=== PATIENT | female | born 1960 | race Caucasian/White ===

== ENCOUNTER 2016-05-07 08:51 | Emergency (ER) | payer OTHER ==
--- NOTE | 2016-05-07 10:29 | UC ---
Complaint Female HPI - HPI Summary HPI Summary: PT WITH H/O KIDNEY STONES PRESENTS WITH 1 WEEK OF DYSURIA AND HEMATURIA. PAST 4 DAYS HAS HAD CHILLS, MYALGIAS, NAUSEA. LOW GRADE FEVER HERE TODAY. - History Of Current Complaint Chief Complaint: UCGU Stated Complaint: URINARY ISSUE CHILLS Time Seen by Provider: 05/07/16 09:15 Hx Obtained From: Patient Onset/Duration: Gradual Onset, Lasting Days, Still Present Timing: Constant Severity Initially: Moderate Severity Currently: Moderate Pain Intensity: 7 Pain Scale Used: 0-10 Numeric Character: Dull Aggravating Factor(s): Urination Alleviating Factor(s): Nothing Associated Signs And Symptoms: Positive: Fever, Nausea - Allergies/Home Medications Allergies/Adverse Reactions: Allergies Allergy/AdvReac Type Severity Reaction Status Date / Time No Known Allergies Allergy Verified 08/29/15 21:32 PMH/Surg Hx/FS Hx/Imm Hx Endocrine History Of: Reports: Diabetes Cardiovascular History Of: Reports: Hypertension Respiratory History Of: Reports: Asthma - Surgical History Surgical History: Yes Surgery Procedure, Year, and Place: kidney stones. gallbladder - Family History Known Family History: Positive: Hypertension, Diabetes - Social History Alcohol Use: None Substance Use Type: None Smoking Status (MU): Never Smoked Tobacco Review of Systems Constitutional: Fever, Chills Respiratory: Negative Cardiovascular: Negative Gastrointestinal: Other - NAUSEA Genitourinary: Dysuria, Hematuria All Other Systems Reviewed And Are Negative: Yes Physical Exam Triage Information Reviewed: Yes Appearance: Well-Appearing, No Pain Distress, Well-Nourished Vital Signs: Initial Vital Signs Temp 100.5 F 05/07/16 09:07 Pulse 112 05/07/16 09:07 Resp 20 05/07/16 09:07 BP 152/82 05/07/16 09:07 Pulse Ox 95 05/07/16 09:07 Vital Signs Reviewed: Yes Eyes: Positive: Conjunctiva Clear ENT: Positive: Hearing grossly normal Neck: Positive: Supple Respiratory Exam: Normal Cardiovascular: Positive: Tachycardia Abdomen Description: Positive: Nontender, Soft. Negative: CVA Tenderness (R), CVA Tenderness (L), Distended, Guarding Musculoskeletal: Positive: No Edema Neurological: Positive: Alert Psychological: Positive: Age Appropriate Behavior Skin: Negative: rashes Diagnostics - Laboratory Diagnostic Studies Completed/Ordered: URINE DIP SP GR 1.020, 1+LEUKS, 2+BLOOD, 2 +PROTEIN, 1+ GLUCOSE. NEG NITRITES - Radiology CT ABD/PELVIS W/O Xray Interpretation: Positive (See Comments) - Developing left-sided staghorn calculus. Left-sided perinephric stranding. No obstruction. Radiology Interpretation Completed By: Radiologist Complaint Female Dx - Course Course Of Treatment: SPOKE TO DR. DOUGLASS (UROLOGY). ADVISES TRANSFER TO ER FOR ADMISSION FOR PYELO - ROCEPHIN/GENT, BLOOD WORK AND BLOOD CULTURES. PT SCHEDULED FOR STENT PLACEMENT TOMORROW. - Differential Dx/Diagnosis Provider Diagnoses: 1. PYELONEPHRITIS. 2. MULTIPLE RENAL CALCULI - Physician Notifications Discussed Patient Care With: 1. DR. DOUGLASS (UROLOGY) 2. TAVIA LORENZ (ER) Time Discussed With Above Provider: 11:46 - ADVISED TO SEND TO ER FOR ADMISSION Discharge - Discharge Plan Condition: Stable Disposition: AGAINST MEDICAL ADVICE Referrals: Marina Hernandez MD [Primary Care Provider] -
--- NOTE | 2016-05-07 11:10 | RAD ---
INDICATION: Hematuria. Dysuria. History of nephrolithiasis COMPARISON: None TECHNIQUE: Noncontrast axial source images were acquired from the level hemidiaphragms to the symphysis pubis as part of CT imaging for renal stone. Lung bases: The lung bases are clear. Liver: The liver is enlarged with findings of hepatic steatosis. Noncontrast imaging shows no evidence of a hepatic mass or ductal dilatation. Gallbladder: Cholecystectomy. Spleen: The spleen is normal in size. The noncontrast CT appearance is normal. Pancreas: Noncontrast imaging shows no pancreatic mass or ductal dilitation. Adrenal glands: No masses are identified. Kidneys/Bladder: There is a developing staghorn calculus on the left. The calcific mass measures up to 3.5 cm and involves the renal pelvis and lower pole left renal calyces. There are no other calcifications of urinary significance. There is no obstruction. There is mild left-sided perinephric stranding. Noncontrast imaging shows no evidence of a renal mass. The bladder is unremarkable. Adenopathy: There is no evidence of intraperitoneal or retroperitoneal adenopathy. Evaluation is limited without oral contrast. Fluid collections: There are no other free or localized fluid collections. Vessels: The aorta and iliac vessels are normal in caliber. There are no significant atherosclerotic changes. The IVC appears normal Pelvic organs: The uterus and right adnexa are normal. There are multiple surgical clips in the left adnexa GI tract: Evaluation of the bowel is limited without oral contrast. There is a small hiatal hernia. The upper GI tract is otherwise unremarkable. The terminal ileum appears normal. The appendix and cecum are normal. There is moderate stool throughout the colon. There are no obstructive findings. Soft tissues: No soft tissue abnormalities of the extraperitoneal abdomen or pelvis are identified. Osseous structures: There are no acute osseous findings. IMPRESSION: 1. Hepatomegaly with hepatic steatosis. 2. Developing left-sided staghorn calculus. Left-sided perinephric stranding. No obstruction.
[2016-05-07] MEDS ORDERED: Ibuprofen TAB* 600 MG PO ONE (11:22)
[2016-05-07 11:37] VITALS: BP 147/78
== END 2016-05-07 11:58 | disposition left against medical advice (07) ==
LOC: UCEAST 08:51
DX: N12 Tubulo-interstitial nephritis, not specified as acute or chronic (principal); N20.0 Calculus of kidney; E11.9 Type 2 diabetes mellitus without complications; I10 Essential (primary) hypertension; J45.909 Unspecified asthma, uncomplicated; Z87.442 Personal history of urinary calculi
CPT/HCPCS: 74176; 81003; 87077; 87086; 87186; 99212; A9270-GY; G0463

== ENCOUNTER 2016-05-07 12:41 | Observation (INO) | payer OTHER ==
[2016-05-07] MEDS ORDERED: NS 0.9% 1000 ML* 3,000 ML IV ONE (15:58)
--- NOTE | 2016-05-07 16:03 | ED ---
GI/ HPI - HPI Summary HPI Summary: Pt transferred here from w/ multiple Lt sided renal calculi w/o obstruction as well as perinephric stranding (stones + pyelonephritis). Had painless hematuria last Friday. Then developed "flu-like" sx past couple of days. Had CT ab/pelvis at and urinalysis (+ blood, glucose, protein, leukocytes and trace ketones) - they will send urine sample for cx. Dr. Parry has been called - advised to start anbx, admit and he will place stent tomorrow. Pt reports she has had kidney stones before and they haven't presented in this fashion before. She was given ibuprofen at and reports she feels better. Denies agustín fever, chills, N/V/D, flank pain, dysuria, ab/pelvic pain, chest pain or SOB. She also has DM, poorly controlled. States she runs in the 160's-200's. Takes metformin, glipizide and low dose LANI inhibitor for renal protection. - History of Current Complaint Chief Complaint: EDFlankPain Time Seen by Provider: 05/07/16 15:44 Stated Complaint: PT HAS KIDNEY STONE, COMMING FROM [facility] Hx Obtained From: Patient Pain Intensity: 1 - Allergy/Home Medications Allergies/Adverse Reactions: Allergies Allergy/AdvReac Type Severity Reaction Status Date / Time No Known Allergies Allergy Verified 08/29/15 21:32 PMH/Surg Hx/FS Hx/Imm Hx Previously Healthy: Yes Endocrine/Hematology History: Reports: Hx Diabetes - poorly controlled - avg's 160's - 200's Cardiovascular History: Reports: Hx Hypertension - ? Respiratory History: Reports: Hx Asthma History: Reports: Hx Kidney Infection, Hx Kidney Stones - Cancer History Hx Chemotherapy: No Hx Radiation Therapy: No - Surgical History Surgery Procedure, Year, and Place: kidney stones. gallbladder Infectious Disease History: No Infectious Disease History: Denies: Traveled Outside the [place] in Last 30 Days - Family History Known Family History: Positive: Hypertension, Diabetes - Social History Occupation: Unemployed Lives: With Family Alcohol Use: None Hx Substance Use: No Substance Use Type: Reports: None Hx Tobacco Use: No Smoking Status (MU): Never Smoked Tobacco Review of Systems Constitutional: Other - "flu-like" sx - subjective fever, chills, general achiness Eyes: Negative ENT: Negative Cardiovascular: Negative Respiratory: Negative Gastrointestinal: Negative Positive: see HPI Musculoskeletal: Negative Skin: Negative Neurological: Negative Psychological: Normal All Other Systems Reviewed And Are Negative: Yes Physical Exam Triage Information Reviewed: Yes Vital Signs On Initial Exam: Initial Vitals Temp Pulse Resp BP Pulse Ox 96.6 F 102 18 135/80 97 05/07/16 13:10 05/07/16 13:10 05/07/16 13:10 05/07/16 13:10 05/07/16 13:10 Vital Signs Reviewed: Yes Appearance: Positive: Well-Appearing, No Pain Distress, Obese Skin: Positive: Warm, Dry Head/Face: Positive: Normal Head/Face Inspection Eyes: Positive: Normal, EOMI, Conjunctiva Clear - anicteric ENT: Positive: Hearing grossly normal, Pharynx normal - mucosa moist Neck: Positive: Supple Respiratory/Lung Sounds: Positive: Clear to Auscultation, Breath Sounds Present. Negative: Rales, Rhonchi, Wheezes Cardiovascular: Positive: Normal, RRR, S1, S2. Negative: Leg Edema Left, Leg Edema Right Abdomen Description: Positive: Nontender, Soft. Negative: CVA Tenderness (R), CVA Tenderness (L), Distended Bowel Sounds: Positive: Present Musculoskeletal: Positive: Normal, Strength/ROM Intact Neurological: Positive: Normal, Sensory/Motor Intact, Alert, Oriented to Person Place, Time, CN Intact II-III Psychiatric: Positive: Normal Diagnostics - Vital Signs Vital Signs Temp Pulse Resp BP Pulse Ox 05/07/16 14:19 96.2 F 05/07/16 13:10 96.6 F 102 18 135/80 97 - Laboratory Lab Statement: Any lab studies that have been ordered have been reviewed, and results considered in the medical decision making process. GIGU Course/Dx - Course Course Of Treatment: Spoke w/ Dr. Parry - would like 2grams of rocephin and 180mg of Gentamicin as well as labs w/ blood cx. Spoke w/ Dr. Huang - will admit to hospital service and Sohan will place stent tomorrow. Pt aware and agrees w/ plan. - Diagnoses Provider Diagnoses: Pyelonephritis, Renal calculus, left Discharge - Discharge Plan Condition: Stable Disposition: ADMITTED TO [facility]
[2016-05-07] MEDS ORDERED: cefTRIAXone(*) 1 GM in NS 0.9% 50 ML* 50 ML IVPB ONE (16:10)
[2016-05-07] MEDS ORDERED: Ondansetron INJ* 2 MG/ML VIAL IV PRN (16:53)
[2016-05-07] MEDS ORDERED: Dextrose 50% Syringe 50 ML* 25 GM/50 ML SYRINGE IV PUSH PRN ×2 (16:53→17:56)
[2016-05-07] MEDS ORDERED: NS 0.9% 1000 ML* 1,000 ML IV SCH (17:00)
[2016-05-07 17:06] LABS: Hematocrit 37 % (35-47); Hemoglobin 11.9 g/dl (12.0-16.0); Mean Corpuscular HGB Conc 33 g/dl (31-36); Mean Corpuscular Hemoglobin 27 pg (27-31); Mean Corpuscular Volume 83 fL (80-97); Mean Platelet Volume 8 um3 (7.4-10.4); Red Blood Count 4.43 10^6/ul (4.0-5.4); Red Cell Distribution Width 14 % (10.5-15); White Blood Count 17.6 10^3/ul (3.5-10.8)
[2016-05-07 17:21] LABS: Albumin 3.9 g/dL (3.2-5.2); BUN/Creatinine Ratio 16.8 (8-20); C Reactive Protein 198.24 mg/L (< 5.00); Calcium 9.2 mg/dL (8.6-10.3); EGFR African American 78.8 (>60); EGFR Non-African American 61.3 (>60); Globulin 3.4 g/dL (2-4); Potassium 4.1 mmol/L (3.5-5.0); Total Bilirubin 0.9 mg/dL (0.2-1.0); Total Protein 7.3 g/dL (6.4-8.9)
[2016-05-07] MEDS ORDERED: Insulin LISPRO* 1 UNITS UNIT SUBCUT ONE ×2 (17:56→17:59)
[2016-05-07] MEDS: Cefepime(*) 1 GM in NS 0.9% 50 ML* 50 ML IVPB SCH (18:28)
[2016-05-07] MEDS ORDERED: Buffered Lidocaine 1% SYRIN* 3 ML/SYR SYRINGE INTRADERM ONE (19:44)
[2016-05-07] MEDS: Phenazopyridine TAB* 100 MG PO SCH (21:13)
[2016-05-07] MEDS: Acetaminophen TAB* 325 MG PO PRN (21:26)
--- NOTE | 2016-05-07 21:30 | HP ---
HISTORY AND PHYSICAL: DATE OF ADMISSION: 05/07/16 PRIMARY CARE PROVIDER: Dr. Hernandez. ATTENDING PHYSICIAN WHILE IN THE HOSPITAL: Dr. Denisse Ames * (report dictated by Alessandro Loera NP). CONSULTING UROLOGIST: Dr. Parry. CHIEF COMPLAINT: 1. Body aches. 2. Chills. 3. Sweats at night. HISTORY OF PRESENT ILLNESS: Ms. Honeycutt is a 56-year-old female patient. She carries a history of diabetes, asthma, and a history of hypertension. She comes in to the ER today stating that she has a history of nephrolithiasis in the past and has had several kidney stones. She typically gets nauseous with them; however, last several days, she has noticed that she would just ache all over. She thought she was coming down with a flu. She had chills at night. The symptoms were not resolving yesterday. She was worried that maybe she had a stone because she was having what she felt like bladder spasms. She denied specifically any dysuria, but she had lower abdominal discomfort and again this aching all over and so, she decided to come in to the [facility] where a UA was obtained and also a CT which ultimately showed nephrolithiasis again, but no obstruction at this point. She was deferred to the emergency room department. There was some straining noted on the exam. She denied having any left-sided flank pain. She denied having any chest pain or any shortness of breath. She was evaluated here in the ED. Antibiotics were started and it was felt that she would require stenting of the left ureter because of the location of the stone. PAST MEDICAL HISTORY: Significant for: 1. Diabetes. 2. Hypertension. 3. Asthma. PAST SURGICAL HISTORY: She has had: 1. Multiple cystoscopies. 2. Laparoscopic cholecystectomy. MEDICATIONS: Home medications according to the patient include: 1. Metformin 1000 mg p.o. b.i.d. 2. Glipizide 10 mg p.o. daily. 3. Benazepril 20 mg daily. ALLERGIES TO MEDICATIONS: Include no known drug allergies. FAMILY HISTORY: Both her parents were diabetic. SOCIAL HISTORY: She does not smoke. She does not drink. She works as an author. Surrogate decision maker is her . REVIEW OF SYSTEMS: There is low-grade fever documented at [facility] of 100.7. She does admit to having chills. There is no significant weight change. Denied having any double vision. No ear discharge. No rhinorrhea. No sore throat. No thyroid enlargement. She denied having any chest pain. No orthopnea, no nocturnal dyspnea. There is no abdominal pain. There was no nausea, no vomiting. No dysuria, no frequency. No seizure, no loss of consciousness. No pruritus and no skin ulcerations. Review of 14 systems completed, all others negative. PHYSICAL EXAMINATION GENERAL: At this time, Ms. Honeycutt is a 56-year-old female patient. She does not appear to be in any acute distress. She is sitting in the ER stretcher. She is awake and alert. VITAL SIGNS: Reveal blood pressure 135/80 with a pulse of 102; respirations 18 ; O2 sat 97%; temperature 96.6, at [facility], it was 100.5. HEENT: Head: Atraumatic and normocephalic. Eyes: EOMs intact. Sclerae anicteric. Throat: Oral mucosa appears to be moist. No oropharyngeal erythema. NECK: Supple. LUNGS: Clear to auscultation bilaterally. No wheezes, rales, or rhonchi. HEART: Sounds S1, S2. Regular rate and rhythm. No murmurs, rubs, or gallops. ABDOMEN: Soft, flat, and nontender. No CVA tenderness. EXTREMITIES: Pulses were 2+ throughout. She is able to move all 4 extremities with 5/5 strength. NEUROLOGIC: The patient is awake, alert, and oriented x3. Tongue midline. Financial Reporting Advisor equal. No gross focal deficits. SKIN: Intact. DIAGNOSTIC STUDIES/LAB DATA: Pending for today but she did have a urine which showed 2+ protein, 1+ glucose, trace ketones, 2+ blood, 1+ leukocyte esterase. She had a CT over at [facility] which showed impression: Hepatomegaly with hepatic steatosis, developing left-sided staghorn calculus, left-sided perinephritic stranding, no obstruction. Old medical records were reviewed. ASSESSMENT AND PLAN: Ms. Honeycutt is a 56-year-old female patient coming in to the ER today with complaints of body aches, not feeling well, and chills. On evaluation, found to have a temperature over at [facility], was transferred here due to nephrolithiasis. She will be admitted under observation status for: 1. Nephrolithiasis: At this point, she does have some stranding on the CT. She had a low-grade fever. I think she warrants antibiotics. Dr. Parry will be to evaluate the patient. He is planning on doing a cystoscopy with stent because of the nephrolithiasis on the left side. I am waiting for the CBC and a BMP and cultures were sent. I will put her on cefepime and she did receive a dose of gentamicin here in the ED. We will hydrate her aggressively. She is going to get 3 L of fluid upfront here in the ED and then we will put normal saline at 100 cc an hour and we will order p.r.n. pain medication. I did start Pyridium and I will order p.r.n. antiemetics if needed. 2. Diabetes: I will put her on lispro sliding scale. 3. History of hypertension: She is on benazepril. I will hold this in the setting of acute illness, as I do not want to cause any acute kidney injury. 4. DVT prophylaxis: She will be placed on heparin subcu. 5. Code status: Full code. 6. Fluids, electrolytes, and nutrition: She can have a consistent carb diet and n.p.o. after midnight. TIME SPENT: On the admission was 60 minutes; greater than half the time was spent [id number] with the patient obtaining my history and physical, other half the time spent going over the plan of care with the patient and implementing plan of care. I did discuss the plan of care with my attending, Dr. Ames; she is in agreement. ALESSANDRO LOERA NP CC: Dr. Hernandez; Dr. Parry* [id number]/[facility] #: [id number] [facility]OSPITALDavid
--- NOTE | 2016-05-07 21:56 | CONS ---
UROLOGY CONSULTATION: DATE OF CONSULT: 05/07/16 AGE: 56 years, female. REQUESTING PHYSICIAN: Dr. Barbara Singer DIAGNOSES: 1. Left renal calculi. 2. Probable left pyelonephritis. HISTORY OF PRESENT ILLNESS: Chaparrita Honeycutt is a 56-year-old diabetic with a history of recurrent renal calculi, who is relatively new to the area. She had a 4 to 5-day history of low-grade fever and occasional bladder spasms. She eventually presented to [facility] where her temperature was 100.5, and a CT scan was obtained which was reported as showing a developing staghorn calculus in the left kidney with left-sided perinephric stranding. There was no evidence of obstruction. Because of the findings of the CT scan and the fever, she was transferred to the emergency room. She currently denies any flank pain, nausea, or vomiting. She does have a fairly extensive history of recurrent nephrolithiasis which has been managed up till now in [place] with multiple procedures including lithotripsy and ureteroscopy, but has not required any procedures for the last 7 to 8 years. PAST MEDICAL HISTORY: Significant for: 1. Diabetes mellitus. 2. Hypertension. MEDICATIONS ON ADMISSION: Include: 1. Metformin 1000 mg twice a day. 2. Glipizide 10 mg daily. 3. Benazepril 20 mg daily. ALLERGIES: No known drug allergies. REVIEW OF SYSTEMS: She denies any chest pain or shortness of breath. There is no history of neurologic or vascular issues. PHYSICAL EXAM: Reveals a pleasant, middle-aged lady who does not appear to be in any significant discomfort. Blood pressure is 135/80, temperature 98.2, heart rate 102 per minute regular, oxygen saturation 96% on room air. Cardiovascular Exam: Regular rate and rhythm. S1, S2. Lungs are clear bilaterally. Abdomen is soft with no localized flank tenderness. DIAGNOSTIC STUDIES/LAB DATA: I reviewed the labs which reveal a white count of 17.6, hemoglobin and hematocrit are 11.9 and 37 respectively. Chemistry review reveals sodium of 134, potassium of 4.1, BUN and creatinine are normal at 16 and 0.95 respectively. Glucose is markedly elevated at 404. Lactic acid is 1.6. A urinalysis done at the [facility] this morning had revealed 1+ glucose, 2+ blood, 2+ protein, 1+ leukocyte, but negative nitrite. Urine and blood cultures are pending. I reviewed the CT and to me it appeared that instead of a single discrete large calculus, this may represent 5 separate calculi in or near the left renal pelvis and extending to the mid and lower pole of the left kidney. There is no hydronephrosis. IMPRESSION: I had a detailed discussion with Mrs. Honeycutt regarding the multiple left renal calculi, the probable left pyelonephritis. PLAN/RECOMMENDATIONS: My recommendation is to proceed with intravenous antibiotics and intravenous hydration and to get better control of her serum glucose. The next step would be a left stent insertion, which is tentatively scheduled for tomorrow morning because of the impending possibility of obstruction due to the multiple calculi in or near the left renal pelvis. After the stent insertion and appropriate treatment of the infection, the next step would be to consider definitive treatment of the calculi with either shockwave lithotripsy or laser lithotripsy or percutaneous nephrolithotripsy depending on the x-ray findings. I discussed all this in detail with Mrs. Honeycutt and all her questions were answered. Plan is left stent insertion, 05/08/16. CC: Dr. Marina Hernandez; Dr. Anshu Parry * [id number]/[facility] #: [id number] [facility]
[2016-05-07] MEDS ORDERED: Heparin VIAL(*) 5000 UNITS/ML VIAL (FIVE THOUSAND) SUBCUT SCH (22:00)
[2016-05-08] MEDS: Cefepime(*) 1 GM in NS 0.9% 50 ML* 50 ML IVPB SCH ×2 (05:39→17:23)
[2016-05-08 06:46] LABS: Hematocrit 34 % (35-47); Hemoglobin 11.2 g/dl (12.0-16.0); Mean Corpuscular HGB Conc 33 g/dl (31-36); Mean Corpuscular Hemoglobin 28 pg (27-31); Mean Corpuscular Volume 83 fL (80-97); Mean Platelet Volume 8 um3 (7.4-10.4); Red Blood Count 4.07 10^6/ul (4.0-5.4); Red Cell Distribution Width 13 % (10.5-15); White Blood Count 14.6 10^3/ul (3.5-10.8)
[2016-05-08 07:01] LABS: BUN/Creatinine Ratio 18.2 (8-20); Calcium 8.8 mg/dL (8.6-10.3); EGFR African American 148.1 (>60); EGFR Non-African American 115.2 (>60); Potassium 3.9 mmol/L (3.5-5.0)
[2016-05-08] MEDS ORDERED: Iohexol 180 (CONTRAST) 10 ML SDV IV ONE (07:04)
[2016-05-08] MEDS ORDERED: fentaNYL* 50 MCG/ML 2 ML VIAL (100 MCG VIAL) ONE ×2 (08:53→09:51)
[2016-05-08] MEDS ORDERED: Lidocaine 2% PF* 5 ML VIAL ONE (08:53)
[2016-05-08] MEDS ORDERED: Propofol* 10 MG/ML 20 ML BTL IV PUSH ONE (08:53)
--- NOTE | 2016-05-08 09:46 | RAD ---
INDICATION: Retrograde pyelogram, left ureteral stent insertion. COMPARISON: There is is made with a prior CT of the abdomen and pelvis from May 07, 2016. TECHNIQUE: 9 seconds of intermittent fluoroscopic guidance were provided and 8 spot films of the abdomen were centered on the left side. FINDINGS: There is partial opacification of the left renal collecting system. There are multiple filling defects present within the left renal pelvis and inferior pole calyces which correlate with renal calculi on the prior CT study. Subsequently there is placement of a double-J stent catheter on the left side which demonstrates normal course. IMPRESSION: INTRAOPERATIVE CONTROL FILMS. CPT II Codes: 6045F
[2016-05-08] MEDS: fentaNYL* 50 MCG/ML 2 ML VIAL (100 MCG VIAL) IV PRN ×2 (09:52→10:02)
[2016-05-08] MEDS: Insulin LISPRO* 1 UNITS UNIT SUBCUT SCH ×3 (10:09→17:43)
[2016-05-08] MEDS: Phenazopyridine TAB* 100 MG PO SCH ×2 (10:27→13:39)
[2016-05-08] MEDS: Acetaminophen TAB* 325 MG PO PRN (10:31)
[2016-05-08] MEDS ORDERED: oxyCODONE/Acetamin 5/325 MG* TAB PO PRN (11:20)
[2016-05-08] MEDS ORDERED: oxyCODONE/Acetamin 5/325 MG* TAB ONE (11:25)
[2016-05-08] MEDS ORDERED: CMCS: Solifenacin(NF) 5 MG TAB PO SCH (11:30)
[2016-05-08] MEDS ORDERED: Heparin VIAL(*) 5000 UNITS/ML VIAL (FIVE THOUSAND) SUBCUT SCH (14:00)
--- NOTE | 2016-05-08 16:00 | OP ---
DATE OF OPERATION: 05/08/2016 - ROOM #339 DATE OF : 1960 - AGE: 56-year-old female. SURGEON: Dr. Anshu Parry. ANESTHESIOLOGIST: Dr. Nils Marrufo. ANESTHESIA: General. PRE-OP DIAGNOSES: 1. Left renal calculi. 2. Left pyelonephritis. POST-OP DIAGNOSES: 1. Left renal calculi. 2. Left pyelonephritis. OPERATIVE PROCEDURE: Cystoscopy, left retrograde pyelogram, left ureteroscopy and left stent insertion. COMPLICATIONS: None. STENT USED: 8.5 Amharic 28 cm silicone stent left ureter. INDICATIONS: Chaparrita Honeycutt is a 56-year-old lady with a history of recurrent renal calculi. She was evaluated for what appears to be left-sided pyelonephritis and was noted to have multiple large calculi in the left renal pelvis. She is being brought in for urgent left stent insertion to be followed at some point in the future by lithotripsy. OPERATIVE FINDINGS: 1. Normal appearing bladder. 2. Multiple filling defects left renal pelvis consistent with multiple left renal calculi. 3. Radiopaque density noted adjacent to the left ureter, but no calculus noted within the left ureter. POSTOPERATIVE CONDITION: Stable. DESCRIPTION OF PROCEDURE: After induction of general anesthesia, the patient was placed in the dorsal lithotomy position. Sequential compression devices were in place and functioning. Initially cystoscopy revealed a normal appearing bladder. The left ureteral orifice appeared slightly stenotic. The bladder was otherwise unremarkable. A left retrograde pyelogram was performed. Multiple filling defects were noted in the left renal pelvis. There was a radiopaque density noted at the level of the mid left ureter. I was not sure whether this was within the lumen of the ureter or not and a left ureteroscopy was performed, but there was no calculus noted in the mid distal or proximal left ureter. The uretero-scope was carefully withdrawn under direct vision and an 8.5 Amharic 28 cm silicone stent was introduced and positioned under fluoroscopy with good distal and proximal positioning obtained. The bladder was emptied. The patient tolerated the procedure satisfactorily and was transferred back to the recovery area in stable condition. CC: Dr. Hernandez* [id number]/[facility] #: [id number] [facility]OSPITALDavid
--- NOTE | 2016-05-08 16:18 | RAD ---
HISTORY: Postop stent insertion COMPARISONS: CT dated April 29, 2016 VIEWS: Frontal views of the abdomen. FINDINGS: BOWEL: There is a nonspecific bowel gas pattern, with nondilated small bowel gas noted. CALCULI: There are multiple left renal calculi. A left ureteral stent is noted. BONES AND SOFT TISSUES: Degenerative changes are noted OTHER FINDINGS: None . IMPRESSION: LEFT NEPHROLITHIASIS WITH LEFT URETERAL STENT.
[2016-05-08 16:54] VITALS: BP 143/73
--- NOTE | 2016-05-08 17:36 | PN ---
Subjective Date of Service: 05/08/16 Interval History: Pt is feeling well except for pain related to a recent bladder spasm. She feels like she can manage at home. Objective Active Medications: Acetaminophen (Tylenol Tab*) 650 mg PO Q4H PRN PRN Reason: FEVER/PAIN Last Admin: 05/08/16 10:31 Dose: 650 mg Dextrose (D50w Syringe 50 Ml*) 12.5 gm IV PUSH .FOR FS < 60 - SS PRN PRN Reason: FS < 60 Dextrose (D50w Syringe 50 Ml*) 12.5 gm IV PUSH .FOR FS < 60 - SS PRN PRN Reason: FS < 60 Heparin Sodium (Porcine) (Heparin Vial(*)) 5,000 units SUBCUT Q8HR [facility] Last Admin: 05/08/16 13:40 Dose: 5,000 units Cefepime HCl 1 gm/ Sodium (Chloride) 50 mls @ 100 mls/hr IVPB Q12H [facility] Last Admin: 05/08/16 17:23 Dose: 100 mls/hr Lactated Ringer's (Lactated Ringers 1000 Ml Bag*) 1,000 mls @ 125 mls/hr IV PER RATE [facility] Last Admin: 05/08/16 05:06 Dose: 125 mls/hr Insulin Human Lispro (Humalog*) 0 units SUBCUT AC [facility] PRN Reason: Protocol Last Admin: 05/08/16 11:33 Dose: 6 units Ondansetron HCl (Zofran Inj*) 4 mg IV Q6H PRN PRN Reason: NAUSEA Oxycodone/Acetaminophen (Percocet 5/325 Tab*) 1 tab PO Q6H PRN PRN Reason: PAIN Last Admin: 05/08/16 17:11 Dose: 1 tab Phenazopyridine HCl (Pyridium Tab*) 100 mg PO TID [facility] Last Admin: 05/08/16 13:39 Dose: 100 mg Solifenacin (Vesicare(Nf)) 10 mg PO DAILY [facility] Last Admin: 05/08/16 12:06 Dose: 10 mg Vital Signs 05/07/16 05/07/16 05/07/16 18:08 18:23 18:35 Temperature 98.2 F 98.2 F Pulse Rate 80 78 Respiratory 16 18 16 Rate Blood Pressure 128/72 128/72 (mmHg) O2 Sat by Pulse 96 95 Oximetry 05/07/16 05/07/16 05/07/16 19:44 19:45 20:07 Temperature Pulse Rate Respiratory 17 17 17 Rate Blood Pressure (mmHg) O2 Sat by Pulse Oximetry 05/07/16 05/07/16 05/07/16 21:19 21:21 23:54 Temperature 99.3 F 98.3 F Pulse Rate 86 78 Respiratory 17 18 Rate Blood Pressure 143/71 128/69 (mmHg) O2 Sat by Pulse 97 95 96 Oximetry 05/08/16 05/08/16 05/08/16 02:09 03:17 07:32 Temperature 98.2 F 98.5 F Pulse Rate 76 87 Respiratory 18 18 Rate Blood Pressure 133/61 134/72 (mmHg) O2 Sat by Pulse 96 97 93 Oximetry 05/08/16 05/08/16 05/08/16 08:00 09:33 09:48 Temperature 98.4 F Pulse Rate 94 84 Respiratory 18 14 16 Rate Blood Pressure 149/88 142/85 (mmHg) O2 Sat by Pulse 91 90 Oximetry 05/08/16 05/08/16 05/08/16 09:52 10:00 10:02 Temperature Pulse Rate 75 Respiratory 16 16 14 Rate Blood Pressure 137/82 (mmHg) O2 Sat by Pulse 94 Oximetry 05/08/16 05/08/16 05/08/16 10:15 10:29 10:52 Temperature 97.5 F 98.0 F Pulse Rate 80 90 Respiratory 16 18 18 Rate Blood Pressure 132/81 146/84 (mmHg) O2 Sat by Pulse 97 99 Oximetry 05/08/16 05/08/16 05/08/16 11:02 11:26 11:38 Temperature 98.2 F Pulse Rate 86 Respiratory 18 18 18 Rate Blood Pressure 123/65 (mmHg) O2 Sat by Pulse 96 Oximetry 05/08/16 05/08/16 05/08/16 11:49 12:54 13:26 Temperature 98 F 98.2 F Pulse Rate 90 80 Respiratory 18 16 18 Rate Blood Pressure 146/84 128/69 (mmHg) O2 Sat by Pulse 99 98 Oximetry 05/08/16 05/08/16 16:30 17:11 Temperature 97.9 F Pulse Rate 72 Respiratory 20 18 Rate Blood Pressure 143/73 (mmHg) O2 Sat by Pulse 95 Oximetry Oxygen Devices in Use Now: None Appearance: Middle aged obese female lying in bed, NAD Eyes: No Scleral Icterus Ears/Nose/Mouth/Throat: Mucous Membranes Moist Respiratory: Symmetrical Chest Expansion and Respiratory Effort, Clear to Auscultation Cardiovascular: NL Sounds; No Murmurs; No JVD, RRR, No Edema Abdominal: NL Sounds; No Tenderness; No Distention Extremities: No Clubbing, Cyanosis Skin: No Rash or Ulcers, No Nodules or Sclerosis Neurological: Alert and Oriented x 3 Result Diagrams: 05/08/16 06:31 05/08/16 06:31 Microbiology and Other Data: Microbiology 05/07/16 16:50 Aerobic Blood Culture - Preliminary Blood Venous No Growth Day 1 Anaerobic Blood Culture - Preliminary No Growth Day 1 Assess/Plan/Problems-Billing Ms Honeycutt is a 56 yo F who has a h/o nephrolithiasis, HTN and type II DM who presented to the ER with c/o body aches and concerns for a kidney stone and was found to have a developing left staghorn calculus with probable associated pyelonephritis. - Patient Problems (1) Left ureteral stone Current Visit: Yes Status: Acute Code(s): N20.1 - CALCULUS OF URETER SNOMED Code(s): 73898752 Comment: S/P ureteral stent with Dr. Parry today for a developing L staghorn calculus. She will remain on vesicare and prn pyridium for bladder spasms. She will need to follow up with Dr Parry as an outpatient. (2) Pyelonephritis Current Visit: Yes Status: Acute Code(s): N12 - TUBULO-INTERSTITIAL NEPHRITIS, NOT SPCF ACUTE OR CHRONIC SNOMED Code(s): 51307349 Comment: Urine culture grew E coli. Sensitivites are not back yet. Will d/c pt home on cipro to complete 9 more days of therapy. She will need to follow up with Dr. Parry. Sensitivites will need to be followed to ensure she is on appropriate therapy. (3) HTN (hypertension) Current Visit: Yes Status: Acute Code(s): I10 - ESSENTIAL (PRIMARY) HYPERTENSION SNOMED Code(s): 69882141 Comment: BP is mildly elevated but she is off her usual home medications. Resume benazapril on d/c. (4) Type II diabetes mellitus Current Visit: Yes Status: Acute Comment: Sugars are elevated. We did not get an A1c- I have asked that it be added on to labs from today. She will continue on her usual home regimen but I suspect she is going to need an additional agent. Will defer this to her PCP. (5) DVT prophylaxis Current Visit: Yes Status: Acute Code(s): PHU2328 - SNOMED Code(s): 674419318 Comment: SQ heparin (6) Full code status Current Visit: Yes Status: Acute Code(s): Z78.9 - OTHER SPECIFIED HEALTH STATUS SNOMED Code(s): 823369536 Status and Disposition: d/c home
--- NOTE | 2016-05-09 04:22 | DS ---
DISCHARGE SUMMARY: DATE OF ADMISSION: 05/07/16 DATE OF DISCHARGE: 05/08/16 PRIMARY CARE PROVIDER: Dr. Hernandez. UROLOGIST: Dr. Parry. PRINCIPAL DIAGNOSIS: Left developing staghorn calculus with associated left- sided pyelonephritis. SECONDARY DIAGNOSES: 1. Hypertension. 2. Type 2 diabetes. DISCHARGE MEDICATIONS: 1. Cipro 500 mg p.o. twice daily x9 more days. 2. Pyridium 100 mg p.o. t.i.d. p.r.n. bladder spasms. 3. VESIcare 10 mg p.o. daily. 4. Percocet 5/325 one tab p.o. q.6 hours p.r.n. pain. 5. Benazepril 20 mg p.o. daily. 6. Glipizide 10 mg p.o. daily. 7. Metformin 1000 mg p.o. twice daily. HOSPITAL COURSE: Ms. Honeycutt is a 56-year-old female with history of nephrolithiasis in the past, hypertension, and type 2 diabetes, who presents to the emergency room with complaints of body aches, chills, and sweats, and concern for nephrolithiasis. The patient underwent CT scan of the abdomen and pelvis, which revealed the developing left staghorn calculus with stranding of the left kidney. The patient was sent from initially urgent care to [facility] Emergency Room to be evaluated. The patient was admitted for treatment of probable pyelonephritis. Her urine from the urgent care visit grew E. coli. Sensitivities are pending on this. The patient was taken to the operating room by Dr. Parry on the morning of 05/08/16 where left ureteral stent was placed. The patient at this point is doing much better. She is having bladder spasms and will use VESIcare as well as Pyridium for the spasms. She will also have Percocet available for pain. The patient at this point is stable for discharge home. She will continue on Cipro 500 mg p.o. twice daily for another 9 days or until she is seen by Dr. Parry in the outpatient setting. Her white blood cell count was quite elevated on admission at 17.6. It trended down to 14.6. I have not ordered a followup white blood cell count; however, if her symptoms fail to improve, a followup CBC should be obtained. The patient will need to follow up with Dr. Parry for determining definitive treatment for the staghorn calculus and for stent removal. In terms of the patient's chronic medical condition, she will be maintained on her usual dose of her benazepril. The patient's type 2 diabetes, I suspect, is not terribly well controlled. She has not had hemoglobin A1c obtained in our system since 2014, at which time it was 10.3%. The patient's sugars have been elevated in the 200s range; however, she has been off her metformin and glipizide. She will go back on these. The patient will need to follow up with her primary care provider for likely adjustments in her regimen or the addition of another agent. Hemoglobin A1c is pending at the time of this dictation. FOLLOWUP CONCERNS: The patient is being discharged home today, 05/08/16. ACTIVITY LEVEL: As tolerated. DIET: Diabetic. CONDITION ON DISCHARGE: Stable. FOLLOWUP: The patient should follow up with Dr. Hernandez in the next 4 to [address] Parry in the next 1 to 2 weeks. TIME SPENT: Twenty-five minutes was spent discharging this patient. CC: Dr. Hernandez; Dr. Parry* [id number]/[facility] #: [id number] MTDD
== END 2016-05-08 19:05 | disposition home or self-care (01) ==
LOC: ED 12:41 → SSU 16:19 → ED 17:41
PROVIDERS: ADMIT Internal Medicine; ATTEND Hospitalist
PROC: BT1FZZZ Fluoroscopy of Left Kidney, Ureter and Bladder (ICD-10-PCS; 2016-05-08)
PROC: 0T778DZ Dilation of Left Ureter with Intraluminal Device, Via Natural or Artificial Opening Endoscopic (ICD-10-PCS; principal; 2016-05-08 09:00)
DX: N20.0 Calculus of kidney (principal); Z87.442 Personal history of urinary calculi; E11.9 Type 2 diabetes mellitus without complications; Z79.84 Long term (current) use of oral hypoglycemic drugs; I10 Essential (primary) hypertension; Z79.899 Other long term (current) drug therapy
CPT/HCPCS: 36415; 74000; 74420; 80048; 80053; 83036; 83605; 85025; 85610; 86140; 87040; 94760; 96365; 96366; 96367; A9270-GY; C1876; G0378; J0692; J0696; J1580; J1644; J2704; J3010

== ENCOUNTER 2016-06-03 08:56 | Day surgery (SDC) | payer OTHER ==
[~2016-06-03 08:56] MED LIST: Buffered Lidocaine 1% SYRIN* 3 ML/SYR SYRINGE INTRADERM ONE; Famotidine IV* 10 MG/ML 2 ML (20 mg) IV ONE; Metoclopramide IV* 5 MG/ML 2 ML VIAL IV SLOW PU ONE
[2016-06-03] MEDS ORDERED: Famotidine IV* 10 MG/ML 2 ML (20 mg) ONE (09:06)
[2016-06-03] MEDS ORDERED: cefTRIAXone(*) 2 GM ADDV.VIAL IVPB ONE (09:06)
[2016-06-03] MEDS ORDERED: Metoclopramide IV* 5 MG/ML 2 ML VIAL ONE (09:06)
--- NOTE | 2016-06-03 09:36 | RAD ---
INDICATION: Left-sided nephrolithiasis. Imaging prior to lithotripsy COMPARISON: May 08, 2016 TECHNIQUE: A single view of the abdomen is submitted. FINDINGS: Bones: There are no acute bony findings. Soft tissues: The psoas margins are sharp. There are clips in the gallbladder fossa. There are clips projecting over the minor pelvis on the left.. Bowel gas pattern: Normal Calcifications: Numerous left-sided renal calcifications without radiographic change Other: Left ureteral stent unchanged in position IMPRESSION: LEFT-SIDED NEPHROLITHIASIS AND LEFT URETERAL STENT
[2016-06-03] MEDS ORDERED: Insulin LISPRO* 1 UNITS UNIT SUBCUT ONE (10:01)
[2016-06-03] MEDS ORDERED: fentaNYL* 50 MCG/ML 2 ML VIAL (100 MCG VIAL) ONE (10:21)
[2016-06-03] MEDS ORDERED: Midazolam* 1 MG/ML 2 ML VIAL (2 MG) ONE (10:21)
[2016-06-03] MEDS ORDERED: Propofol* 10 MG/ML 20 ML BTL IV PUSH ONE (10:32)
[2016-06-03] MEDS ORDERED: Ondansetron INJ* 2 MG/ML VIAL ONE (10:32)
[2016-06-03] MEDS ORDERED: DiMENhydriNATE IV* 50 MG/ML VIAL IV PUSH PRN (11:02)
[2016-06-03] MEDS ORDERED: fentaNYL* 50 MCG/ML 2 ML VIAL (100 MCG VIAL) IV PRN (11:02)
[2016-06-03 12:20] VITALS: BP 134/86
--- NOTE | 2016-06-03 13:33 | RAD ---
INDICATION: Left renal calculi postoperative study. COMPARISON: Comparison is made with a prior CT of the abdomen and pelvis from May 07, 2016 and a prior KUB series obtained approximately 4 hours earlier. TECHNIQUE: Frontal supine films of the abdomen were obtained. FINDINGS: The small bowel and colon appear nondistended. There are multiple left renal calculi present. There is a double-J stent catheter present on the left side which demonstrates normal course. There are multiple surgical clips which project over the pelvis laterally on the left side. There are surgical clips in the right upper quadrant consistent with a prior cholecystectomy. IMPRESSION: LEFT RENAL CALCULI, STATUS POST STENT PLACEMENT.
--- NOTE | 2016-06-04 02:20 | OP ---
DATE OF OPERATION: 06/03/16 [facility] DATE OF : 64 SURGEON: Anshu Parry MD ANESTHESIOLOGIST: Dr. Fulton. ANESTHESIA: General. PRE-OP DIAGNOSIS: Multiple left renal calculi. POST-OP DIAGNOSIS: Multiple left renal calculi. OPERATIVE PROCEDURE: Shockwave lithotripsy of left renal calculi. COMPLICATIONS: None. POSTOPERATIVE CONDITION: Stable. INDICATIONS: Chaparrita Honeycutt is a 56-year-old lady who had undergone urgent stent insertion. She was noted to have multiple left renal calculi. She is now being brought in for shockwave lithotripsy. Because of the large number and size of the calculi, I have explained to her that she may require several procedures in an effort to render her stone free. DESCRIPTION OF PROCEDURE: After induction of general anesthesia, the patient was placed on the operating table in supine position. In supine position, sequential compression devices were in place and functioning. Initial fluoroscopy revealed multiple left renal calculi starting in the area of the renal pelvis and extending in the mid pole and lower pole of the left kidney. Shockwave lithotripsy was commenced at a rate of 90 shocks per minute. After the initial 300 shocks, lithotripsy was stopped for a few minutes in an effort to minimize any potential trauma to the kidney. Lithotripsy was then resumed. I tried to distribute the shock waves between the multiple calculi and because of the multiplicity of the stones, could not target all the stones at the present time. Two of the larger stones were targeted and a total of 2400 shocks were administered. The plan is to obtain a postoperative KUB x-ray and then determine timing of repeat lithotripsy in the near future. The patient tolerated the procedure satisfactorily and was transferred back to the recovery area in stable condition. CC: Marina Hernandez MD * [id number]/[facility] #: [id number] MAURI
== END 2016-06-03 12:37 | disposition home or self-care (01) ==
LOC: IMG 08:56 → OR 08:56 → IMG 12:37
PROVIDERS: ATTEND Urology
DX: N20.0 Calculus of kidney (principal); I10 Essential (primary) hypertension; J45.909 Unspecified asthma, uncomplicated; E11.9 Type 2 diabetes mellitus without complications; Z79.84 Long term (current) use of oral hypoglycemic drugs
CPT/HCPCS: 74000; J0696; J2250; J2405; J2704; J3010

== ENCOUNTER 2016-07-15 08:58 | Day surgery (SDC) | payer OTHER ==
--- NOTE | 2016-07-09 21:56 | HP ---
ADMITTING HISTORY AND PHYSICAL: DATE OF ADMISSION: 07/15/16 AGE: 56 years, female. ADMITTING DIAGNOSIS: Multiple left renal calculi. PLANNED PROCEDURE: Shockwave lithotripsy of left renal calculi. SURGEON: Dr. Parry. ADMITTING HISTORY AND PHYSICAL: Chaparrita Honeycutt is a 56-year-old diabetic, who had undergone urgent stent insertion on 05/08/16. She had then undergone lithotripsy on 06/03/16 for multiple large left renal calculi. Partial fragmentation was observed and she is now being brought in for repeat lithotripsy due to the large size and number of calculi. PAST MEDICAL HISTORY: Significant for: 1. Hypertension. 2. Diabetes mellitus. 3. Renal calculi. 4. Asthma. MEDICATIONS: On admission: 1. Metformin 1000 mg twice a day. 2. Benazepril 20 mg daily. 3. Glipizide 10 mg daily. ALLERGIES: No known drug allergies. REVIEW OF SYSTEMS: She is otherwise in excellent health. She denies any chest pain or shortness of breath. PHYSICAL EXAMINATION GENERAL: Reveals a pleasant, healthy-appearing lady. VITAL SIGNS: Blood pressure is 140/88, pulse 76 per minute, oxygen saturation 96% on room air, temperature 97.4. LUNGS: Clear bilaterally. CARDIOVASCULAR EXAM: Regular rate and rhythm. S1 and S2. ABDOMEN: Soft with mild left flank tenderness. IMPRESSION: A 56-year-old diabetic with multiple left renal calculi who is status post stent insertion and status post lithotripsy on 06/03/16. I have discussed the procedure in detail including possible risks of bleeding, infection, incomplete fragmentation, and possible injury to the kidney. I have also discussed the alternatives of percutaneous nephrolithotripsy. PLAN: Plan is for shockwave lithotripsy of left renal calculi. CC: Dr. Marina Hernandez; Dr. Parry* [id number]/[facility] #: [id number] [facility]
[~2016-07-15 08:58] MED LIST changes: +Buffered Lidocaine 0.9% SYRIN* 5 ML/SYR SYRINGE INTRADERM ONE; +Buffered Lidocaine 0.9% SYRIN* 5 ML/SYR SYRINGE ONE; -Buffered Lidocaine 1% SYRIN* 3 ML/SYR SYRINGE INTRADERM ONE; +Famotidine IV* 10 MG/ML 2 ML (20 mg) ONE; +Metoclopramide IV* 5 MG/ML 2 ML VIAL ONE
[2016-07-15] MEDS ORDERED: Insulin LISPRO* 1 UNITS UNIT SUBCUT ONE ×2 (09:41→09:53)
--- NOTE | 2016-07-15 09:43 | RAD ---
HISTORY: Shock wave lithotripsy COMPARISONS: June 03, 2016 VIEWS: Frontal views of the abdomen. FINDINGS: BOWEL: There is a nonobstructive bowel gas pattern. There is a moderate amount of stool within the colon. CALCULI: There are multiple calculi overlying the left renal parenchymal shadow measuring up to 1.1 cm in size. These are stable. A left ureteral stent is noted. BONES AND SOFT TISSUES: Mild degenerative changes are noted. OTHER FINDINGS: The lung bases are clear. There is no subphrenic gas. Surgical clips are noted in the left lower quadrant. IMPRESSION: LEFT NEPHROLITHIASIS
[2016-07-15] MEDS ORDERED: Midazolam* 1 MG/ML 2 ML VIAL (2 MG) ONE (10:27)
[2016-07-15] MEDS ORDERED: Lidocaine 2% PF * 5 ML VIAL ONE (11:26)
[2016-07-15] MEDS ORDERED: Propofol* 10 MG/ML 20 ML BTL IV PUSH ONE (11:26)
[2016-07-15] MEDS ORDERED: fentaNYL* 50 MCG/ML 2 ML VIAL (100 MCG VIAL) IV PRN (12:17)
[2016-07-15] MEDS ORDERED: Ondansetron INJ* 2 MG/ML VIAL IV PRN (12:17)
[2016-07-15 13:48] VITALS: BP 126/77
--- NOTE | 2016-07-16 07:23 | OP ---
DATE OF OPERATION: 07/15/16 [facility] DATE OF : 64 SURGEON: Anshu Parry MD ANESTHESIOLOGIST: Dr. Fulton. ANESTHESIA: General. PRE-OP DIAGNOSIS: Multiple left renal calculi. POST-OP DIAGNOSIS: Multiple left renal calculi. OPERATIVE PROCEDURE: Shockwave lithotripsy of left renal calculi. INDICATIONS: Chaparrita Honeycutt is a 56-year-old lady who had been evaluated for multiple large left renal calculi. She had undergone stent insertion and lithotripsy with partial fragmentation and is now being brought in for repeat lithotripsy. I have discussed the procedure in detail, including possible risks of bleeding, infection, incomplete fragmentation, and injury to the kidney , and also discussed the alternatives of percutaneous nephrolithotripsy. COMPLICATIONS: None. POSTOPERATIVE CONDITION: Stable. DESCRIPTION OF PROCEDURE: After induction of general anesthesia, patient was placed on the lithotripsy table in supine position. There was a cluster of calculi extending from the renal pelvis out towards the mid pole area of the left kidney and these were identified on fluoroscopy. Shockwave lithotripsy was commenced at a rate of 90 shocks per minute. After the initial 300 shocks, there was a pause in lithotripsy for several minutes in an effort to minimize any potential trauma to the kidney. Lithotripsy was then resumed, periodic imaging revealed good localization and fragmentation, and a total of 2400 shocks were administered. The patient tolerated the procedure satisfactorily and was transferred back to the recovery area in stable condition. CC: Marina Hernandez MD * [id number]/[facility] #: [id number] MTDD
== END 2016-07-15 14:03 | disposition home or self-care (01) ==
LOC: OR 08:58
PROVIDERS: ATTEND Urology
DX: N20.0 Calculus of kidney (principal); E11.9 Type 2 diabetes mellitus without complications; Z79.84 Long term (current) use of oral hypoglycemic drugs; Z68.34 Body mass index [BMI] 34.0-34.9, adult; I10 Essential (primary) hypertension; J45.909 Unspecified asthma, uncomplicated; K76.0 Fatty (change of) liver, not elsewhere classified
CPT/HCPCS: 74000; J0696; J1580; J2250; J2704

== ENCOUNTER 2016-08-04 06:31 | Day surgery (SDC) | payer OTHER ==
[2016-08-04] MEDS ORDERED: Ondansetron INJ* 2 MG/ML VIAL IV ONE (07:12)
[2016-08-04] MEDS ORDERED: Ketorolac INJ* 30 MG/ML 1 ML VIAL IV ONE (07:12)
[2016-08-04] MEDS ORDERED: HYDROmorphone* 1 MG/ML 1 ML SYR IV ONE (07:12)
[2016-08-04] MEDS ORDERED: NS 0.9% 1000 ML* 1,000 ML IV ONE (07:12)
--- NOTE | 2016-08-04 07:43 | RAD ---
INDICATION: Suprapubic pain. COMPARISON: Comparison is made with a prior CT of the abdomen and pelvis from May 07, 2016 and a prior KUB series from July 22, 2016. TECHNIQUE: Frontal supine films of the abdomen were obtained. FINDINGS: The small bowel and colon appear nondistended. There are several surgical clips in the right upper quadrant consistent with a prior cholecystectomy. There are also multiple surgical clips present within the pelvis on the left side. There are multiple calcifications which project over the lower pole of the left kidney which is decreased in number from the prior study consistent with multiple renal calculi. In addition there are multiple new calcifications in the distribution of the distal left ureter measuring up to 7 mm in size most consistent with multiple distal ureteral calculi. These are new from the prior exam. There has been interval removal of a double-J stent catheter. IMPRESSION: FINDINGS CONSISTENT WITH MULTIPLE LEFT RENAL AND URETERAL CALCULI. THE URETERAL CALCULI APPEAR NEW FROM THE PRIOR STUDY.
[2016-08-04 07:47] LABS: Urine Bacteria Absent (Absent); Urine Bilirubin Negative (Negative); Urine Glucose 1+(50 mg/dL) (Negative); Urine Nitrite Negative (Negative)
--- NOTE | 2016-08-04 07:53 | ED ---
Adam Juares Alok, scribed for Ryland Chester MD on 08/04/16 at 0715 . GI/ HPI - HPI Summary HPI Summary: 56F presents to the ED with abd pain for the past 3 days and a fever of 101 F as of 0300 this morning. The pt states that what began as left flank pain has transitioned to her suprapubic region and is described as "spasms". Pt notes dysuria. Pt denies hematuria. PMHx includes h/o renal calculi and litrotrypsy 07/15/16. Pt states she has had a urinary stent removed a few weeks ago by Dr. Ling. - History of Current Complaint Chief Complaint: EDUrogenitalProblems Time Seen by Provider: 08/04/16 06:58 Stated Complaint: FEVER/LEFT FLANK PAIN Hx Obtained From: Patient Onset/Duration: Atraumatic, Still Present Timing: Constant Severity: Moderate Current Severity: Moderate Pain Intensity: 10 Location of Pain: Suprapubic Pain Characteristics: Other: - "spasms" Associated Signs and Symptoms: Positive: Dysuria. Negative: Hematuria Aggravating Factor(s): Nothing Alleviating Factor(s): Nothing - Allergy/Home Medications Allergies/Adverse Reactions: Allergies Allergy/AdvReac Type Severity Reaction Status Date / Time No Known Allergies Allergy Verified 08/04/16 06:40 PMH/Surg Hx/FS Hx/Imm Hx Endocrine/Hematology History: Reports: Hx Diabetes - on oral meds Cardiovascular History: Reports: Hx Hypertension - controlled with med Respiratory History: Reports: Hx Asthma - HX OF, NO INHALER IN 5 YEARS, Hx Sleep Apnea GI History: Reports: Other GI Disorders - REPORTS SHE HAS A FATTY LIVER History: Reports: Hx Kidney Infection - hx of, Hx Kidney Stones - HX OF Sensory History: Reports: Hx Contacts or Glasses - GLASSES Denies: Hx Hearing Aid Opthamlomology History: Reports: Hx Contacts or Glasses - GLASSES - Cancer History Hx Chemotherapy: No Hx Radiation Therapy: No - Surgical History Surgery Procedure, Year, and Place: CHOLECYSTECTOMY - 2010 - [facility]. MULTIPLE URETERAL STENTS/LITHOTRIPSIES IN PAST 35 YRS - MOST IN [place] ONE AT [facility] [place] IN MAY 2016 Hx Anesthesia Reactions: No Infectious Disease History: No Infectious Disease History: Denies: Traveled Outside the [place] in Last 30 Days - Family History Known Family History: Positive: Hypertension, Diabetes - Social History Occupation: Unemployed Lives: With Family Alcohol Use: None Hx Substance Use: No Substance Use Type: Reports: None Hx Tobacco Use: No Smoking Status (MU): Never Smoked Tobacco Review of Systems Positive: Fever Positive: Abdominal Pain Positive: dysuria. Negative: hematuria All Other Systems Reviewed And Are Negative: Yes Physical Exam Triage Information Reviewed: Yes Vital Signs On Initial Exam: Initial Vitals Temp Pulse Resp BP Pulse Ox 98.2 F 100 16 165/73 96 08/04/16 06:35 08/04/16 06:35 08/04/16 06:35 08/04/16 06:35 08/04/16 06:35 Vital Signs Reviewed: Yes Appearance: Positive: Well-Appearing, No Pain Distress Skin: Positive: Warm, Skin Color Reflects Adequate Perfusion, Dry Head/Face: Positive: Normal Head/Face Inspection Eyes: Positive: Normal ENT: Positive: Normal ENT inspection Neck: Positive: Supple, Nontender Respiratory/Lung Sounds: Positive: Clear to Auscultation, Breath Sounds Present Cardiovascular: Positive: RRR Abdomen Description: Positive: Soft, Other: - Mildly tender Suprapubic region Bowel Sounds: Positive: Present Musculoskeletal: Positive: Normal Neurological: Positive: Normal Psychiatric: Positive: Normal, Affect/Mood Appropriate - Luis Coma Scale Coma Scale Total: 15 Diagnostics - Vital Signs Vital Signs Temp Pulse Resp BP Pulse Ox 08/04/16 06:43 98 F 100 16 177/79 99 08/04/16 06:35 98.2 F 100 16 165/73 96 - Laboratory Lab Results: Lab Results 08/04/16 Range/Units 07:23 Urine Color Vicki Urine Appearance Cloudy Urine pH 5.0 (5-9) Ur Specific Edna 1.025 (1.010-1.030) Urine Protein 2+(100 mg/dl) H (Negative) Urine Ketones 2+ H (Negative) Urine Blood Negative (Negative) Urine Nitrate Negative (Negative) Urine Bilirubin Negative (Negative) Urine Urobilinogen Negative (Negative) Ur Leukocyte Esterase 2+ H (Negative) Urine WBC (Auto) 3+(>20/hpf) H (Absent) Urine RBC (Auto) Trace(0-2/hpf) (Absent) Ur Squamous Epith Cells Present H (Absent) Urine Bacteria Absent (Absent) Urine Glucose 1+(50 mg/dl) H (Negative) Urine Ascorbic Acid * H (Negative) Lab Statement: Any lab studies that have been ordered have been reviewed, and results considered in the medical decision making process. - Radiology abd XRAY Xray Interpretation: Positive (See Comments) - IMPRESSION: FINDINGS CONSISTENT WITH MULTIPLE LEFT RENAL AND URETERAL CALCULI. THE URETERAL CALCULI APPEAR NEW FROM THE PRIOR STUDY. Radiology Interpretation Completed By: Radiologist ALECIA Course/Dx - Course Course Of Treatment: Ms. Honeyuctt presented in stable condition with a borderline tachycardia and afebrile. She reported a fever at home a couple hours [employer]. She has a known history of kidney stones and undderwent lithotrypsy about 3 weeks ago with stenting and the stent was removed about a week ago. She is C/O "bladder spasms" and points to her suprapubic area. Her W/U revealed an infected urine and stones iin her left ureter. She was given fluids, pain meds and antibiotics and Dr. Ling is taking her to the OR for stenting. - Diagnoses Provider Diagnoses: Ureterolithiasis, UTI (urinary tract infection) - Physician Notifications Discussed Care Of Patient With: Gino Ling - Pt will be admitted to the OR Time Discussed With Above Provider: 07:36 - Critical Care Time Critical Care Time: 30-74 min Discharge - Discharge Plan Condition: Stable Disposition: ADMITTED TO [facility] Referrals: Marina Hernandez MD [Primary Care Provider] - The documentation as recorded by the Adam otero Alok accurately reflects the service I personally performed and the decisions made by me, Ryland Chester MD.
[2016-08-04 08:01] LABS: Hematocrit 39 % (35-47); Hemoglobin 12.8 g/dl (12.0-16.0); Mean Corpuscular HGB Conc 33 g/dl (31-36); Mean Corpuscular Hemoglobin 28 pg (27-31); Mean Corpuscular Volume 85 fL (80-97); Mean Platelet Volume 8 um3 (7.4-10.4); Red Blood Count 4.62 10^6/ul (4.0-5.4); Red Cell Distribution Width 15 % (10.5-15)
[2016-08-04 08:03] LABS: Add Diff/Slide Review? Slide Review Added; Comments Flag Yes
[2016-08-04 08:12] LABS: Albumin 4.4 g/dL (3.2-5.2); BUN/Creatinine Ratio 13.8 (8-20); Calcium 9.7 mg/dL (8.6-10.3); EGFR African American 96.1 (>60); EGFR Non-African American 74.7 (>60); Globulin 3.4 g/dL (2-4); Potassium 3.8 mmol/L (3.5-5.0); Total Bilirubin 1.6 mg/dL (0.2-1.0); Total Protein 7.8 g/dL (6.4-8.9)
[2016-08-04] MEDS ORDERED: Iohexol 180 (CONTRAST) 10 ML SDV IV ONE (08:31)
[2016-08-04] MEDS ORDERED: fentaNYL* 50 MCG/ML 2 ML VIAL (100 MCG VIAL) IV PRN (08:39)
[2016-08-04] MEDS ORDERED: oxyCODONE/Acetamin 5/325 MG* TAB PO PRN (08:39)
[2016-08-04] MEDS ORDERED: Ondansetron INJ* 2 MG/ML VIAL IV PRN (08:39)
[2016-08-04] MEDS ORDERED: Famotidine IV* 10 MG/ML 2 ML (20 mg) ONE (08:40)
[2016-08-04] MEDS ORDERED: Midazolam* 1 MG/ML 2 ML VIAL (2 MG) ONE (08:40)
[2016-08-04] MEDS ORDERED: Ondansetron INJ* 2 MG/ML VIAL ONE (08:40)
[2016-08-04] MEDS ORDERED: Propofol* 10 MG/ML 20 ML BTL IV PUSH ONE (08:40)
[2016-08-04] MEDS ORDERED: fentaNYL* 50 MCG/ML 2 ML VIAL (100 MCG VIAL) ONE (08:40)
[2016-08-04] MEDS ORDERED: Lidocaine 2% PF * 5 ML VIAL ONE (08:40)
[2016-08-04] MEDS ORDERED: Dexamethasone IV* 4 MG/ML 1 ML (4 MG) ONE (08:40)
[2016-08-04] MEDS ORDERED: Levofloxacin 750 MG IVPREMIX(* 750 MG/150 ML BAG ONE (08:55)
--- NOTE | 2016-08-04 10:13 | RAD ---
INDICATION: Left renal and ureteral calculi, left stent placement. COMPARISON: Correlation is made with a prior KUB series obtained earlier today. TECHNIQUE: 8 seconds of intermittent fluoroscopic guidance were provided and 6 spot films of the abdomen were centered on the left side. FINDINGS: There is partial opacification of the left renal collecting system. Subsequently there is placement of a double-J stent catheter on the left side which demonstrates normal course. There appear to be calculi adjacent to the distal portion of the stent catheter. IMPRESSION: INTRAOPERATIVE CONTROL FILMS. CPT II Codes: 6045F
[2016-08-04] MEDS ORDERED: oxyCODONE/Acetamin 5/325 MG* TAB ONE (11:31)
[2016-08-04 12:24] VITALS: BP 140/64
--- NOTE | 2016-08-04 14:44 | OP ---
CC: Marina Hernandez MD* DATE OF OPERATION: 08/04/16 - [facility] DATE OF : 64 SURGEON: Gino Ling MD ANESTHESIOLOGIST: Dr. Jose A Mukherjee. ANESTHESIA: General. PRE-OP DIAGNOSES: 1. Left renal calculi. 2. Left ureteral calculi. 3. Urinary tract infection. POST-OP DIAGNOSES: 1. Left renal calculi. 2. Left ureteral calculi. 3. Urinary tract infection. OPERATIVE PROCEDURE: 1. Cystoscopy. 2. Left retrograde pyelography and placement of left ureteral stent (6-Singaporean). INDICATION FOR PROCEDURE: Mrs. Honeycutt is a 56-year-old white female who had urgent placement of a left ureteral stent 3 months ago because of multiple left renal calculi. This was followed by 2 sessions of shockwave lithotripsy of the left renal calculi. Her stent was removed about 12 days ago. She called early this morning complaining of a fever of 101,urinary frequency and left flank discomfort. Her urinalysis in the emergency room was positive for infection. KUB showed 5 distal left ureteral calculi measuring up to 6 mm in size each. There were also several residual stones in the lower pole calyx of the left kidney. Her white count was 15,000 with a shift. Her temperature in the emergency room was normal. After IV Rocephin and IV Levaquin (based on her urine culture from 1 month ago) , patient is taken to the operating room for urgent placement of a left ureteral stent. PATHOLOGY AT CYSTOSCOPY: The bladder and mucosa was normal showing no significant degree of hyperemia and no changes to suggest cystitis. There was slight hyperemia around the left ureteral orifice. At fluoroscopy, several calculi were noted in the distal ureter and in the left kidney. Following the placement of the open-ended catheter in the left kidney, the urine looked clear and was not cloudy. DESCRIPTION OF PROCEDURE: After successful general anesthesia, patient was placed in the lithotomy position and was prepped and draped for cystoscopy. Cystoscopy was then performed. The bladder was carefully inspected and the above findings were noted. The above described renal and left ureteral calculi were noted at fluoroscopy. A hybrid wire was then introduced into the left orifice and was passed without difficulty into the area of the renal pelvis. A size 5-Singaporean open-ended catheter was fed on top of the guidewire. There was resistance in the distal ureter, but the catheter was successfully introduced into the area of the renal pelvis. A total of 15 cc of urine was drained from the left kidney to decompress it. A specimen was sent for culture and sensitivity. 2 to 3 cc of non-diluted contrast were then injected for retrograde pyelography. There was no dilatation noted. A size 6-Singaporean stent was then placed with the proximal end coiling in the renal pelvis and the distal end coiling inside the bladder. The patient tolerated the procedure well and left the operating room in good condition. The plan is to observe the patient for several hours in the PACU for possible sepsis. If she is doing fine and remains afebrile, patient will be discharged home on Cipro. She will need to be brought back in for left ureteroscopy, laser lithotripsy and extraction of the distal left ureteral calculi. [id number]/[facility] #: [id number] MTDD
== END 2016-08-04 08:57 | disposition short-term general hospital (02) ==
LOC: ED 06:31 → OR 08:57
PROVIDERS: ATTEND Surgery
DX: N20.2 Calculus of kidney with calculus of ureter (principal); N39.0 Urinary tract infection, site not specified; Z96.0 Presence of urogenital implants; E11.9 Type 2 diabetes mellitus without complications; Z79.84 Long term (current) use of oral hypoglycemic drugs; I10 Essential (primary) hypertension; J45.909 Unspecified asthma, uncomplicated
CPT/HCPCS: 36415; 74000; 74420; 80053; 81003; 81015; 85025; 87077; 87086; A9270-GY; C1876; J0696; J1100; J1170; J1885; J2250; J2405; J2704; J3010

== ENCOUNTER → 2016-08-09 08:15 | Day surgery (SDC) | payer OTHER ==
[~2016-08-09 08:15] MED LIST changes: +Acetaminophen TAB* 325 MG PO PRN; -Buffered Lidocaine 0.9% SYRIN* 5 ML/SYR SYRINGE INTRADERM ONE; +Dexamethasone IV* 4 MG/ML 1 ML (4 MG) ONE; +DiMENhydriNATE IV* 50 MG/ML VIAL IV PUSH PRN; +DiMENhydriNATE IV* 50 MG/ML VIAL ONE; +HYDROmorphone* 1 MG/ML 1 ML SYR IV PRN; +HYDROmorphone* 1 MG/ML 1 ML SYR ONE; +Iohexol 180 (CONTRAST) 10 ML SDV IV ONE; +Ketorolac INJ* 30 MG/ML 1 ML VIAL ONE; +Levofloxacin 750 MG IVPREMIX(* 750 MG/150 ML BAG ONE; +Lidocaine 2% PF * 5 ML VIAL ONE; -Metoclopramide IV* 5 MG/ML 2 ML VIAL IV SLOW PU ONE; -Metoclopramide IV* 5 MG/ML 2 ML VIAL ONE; +Midazolam* 1 MG/ML 5 ML VIAL (5 MG) ONE; +Ondansetron INJ* 2 MG/ML VIAL ONE; +Propofol* 10 MG/ML 20 ML BTL IV PUSH ONE; +fentaNYL* 50 MCG/ML 2 ML VIAL (100 MCG VIAL) ONE; +oxyCODONE TAB* 5 MG TAB PO PRN
--- NOTE | 2016-08-09 11:51 | RAD ---
INDICATION: Left ureteroscopic and left stent replacement. COMPARISON: Comparison is made with a prior retrograde pyelogram from August 04, 2016. TECHNIQUE: 8 seconds of intermittent fluoroscopic guidance were provided and 4 spot films of the abdomen were centered on the left side. FINDINGS: There is partial opacification of the left renal collecting system. Subsequently there is placement of a double-J stent catheter on the left side which demonstrates normal course. IMPRESSION: INTRAOPERATIVE CONTROL FILMS. CPT II Codes: 6045F
[2016-08-09 12:06] VITALS: BP 148/87
--- NOTE | 2016-08-09 13:34 | RAD ---
INDICATION: Status post lithotripsy. COMPARISON: Comparison is made with a prior study from August 04, 2016. TECHNIQUE: Frontal supine films of the abdomen were obtained. FINDINGS: The small bowel and colon appear nondistended. There is a double-J stent catheter present on the left side. There are multiple calculi which project over the lower pole of the left kidney. There are also a couple calcifications adjacent to the distal portion of the double-J stent catheter which appears smaller in size and less in number. There are several surgical clips in the right upper quadrant and also within the pelvis on the left side. IMPRESSION: STATUS POST DOUBLE-J STENT CATHETER PLACEMENT. THERE ARE MULTIPLE LEFT RENAL CALCULI AND CALCULI ADJACENT TO THE DISTAL PORTION OF THE DOUBLE-J STENT CATHETER WHICH APPEAR SMALLER IN SIZE AND LESS IN NUMBER.
--- NOTE | 2016-08-10 20:04 | OP ---
CC: Dr. Marina Hernandez; Dr. Anshu Parry OPERATIVE SUMMARY: DATE OF OPERATION: 08/09/16 DATE OF : 64 AGE/SEX: 56 years/female. SURGEON: Anshu Parry MD. ANESTHESIA: General. ANESTHESIOLOGIST: Dr. Ocampo. PRE-OP DIAGNOSES: 1. Multiple left ureteral calculi. 2. Left hydronephrosis. POST-OP DIAGNOSES: 1. Multiple left ureteral calculi. 2. Left hydronephrosis. SURGICAL PROCEDURES: 1. Cystoscopy. 2. Left stent removal. 3. Left retrograde pyelogram. 4. Left ureteroscopy. 5. Laser lithotripsy of multiple left ureteral calculi and removal of calculus fragments, and left stent insertion. COMPLICATIONS: None. POSTOPERATIVE CONDITION: Stable. STENT USED: 8.5-Comoran 28 cm silicone stent, left ureter. OPERATIVE FINDINGS: Multiple large fairly dense calculi, left distal ureter, fragmented with Holmiu m laser. INDICATIONS: Chaparrita Honeycutt is a 56-year-old lady who had been evaluated for multiple large left renal calculi. She had previously undergone stent insertion and lithotripsy and after stent removal had p resented with multiple obstructing calculi and calculus fragments in the left distal ureter. She holguin d undergone urgent left stent insertion last weekend and is now being brought in for left ureterosco py and laser. PROCEDURE IN DETAIL: After induction of general anesthesia, the patient was placed in dorsal lithot nikita position. Sequential compression devices were in place and functioning. Initial cystoscopy rev ealed a normal appearing bladder, with the stent seen exiting from the left orifice, this was remove d and a guidewire was advanced through the lumen of the stent into the proximal collecting system. A 6- Comoran semi-rigid ureteroscope was introduced and advanced into the left ureter. A few centime ters above the ureterovesical junction, there was an approximately 6 to 7 mm calculus occupying almo st the entire lumen of the ureter, with surrounding inflammatory response. Above this, I could see multiple additional calculi also. Using a 550 micron Holmium laser, laser lithotripsy was carried ou t with the distal most calculus being fragmented first and then moving proximally. There were a tot al of 4 large stones, all of which were successfully fragmented and all of the fragments were retrie ruby using the grasping forceps. At the end of the procedure, there were no remaining visible stones in the distal or mid ureter and an 8.5 Comoran stent was introduced and positioned under fluoroscopy with good proximal and distal positioning obtained. The patient still has some stones in the left kidney, which may require either shockwave or laser lithotripsy at a later date. The bladder was em ptied, the patient tolerated the procedure satisfactorily and was transferred back to recovery area in stable condition. [id number]/[facility] #: [id number]
== END | disposition home or self-care (01) ==
LOC: OR 08:15
PROVIDERS: ATTEND Urology
DX: N13.2 Hydronephrosis with renal and ureteral calculous obstruction (principal); E11.9 Type 2 diabetes mellitus without complications; Z79.84 Long term (current) use of oral hypoglycemic drugs; J45.909 Unspecified asthma, uncomplicated; I10 Essential (primary) hypertension; K76.0 Fatty (change of) liver, not elsewhere classified
CPT/HCPCS: 74000; 74420; 82365; 88300; C1876; J1100; J1170; J1240; J1580; J1885; J2250; J2405; J2704; J3010

== ENCOUNTER 2018-04-21 17:51 | Emergency (ER) | payer BC, OTHER ==
[2018-04-21 18:07] VITALS: BP 159/92
--- NOTE | 2018-04-21 18:39 | UC ---
Complaint Female HPI - HPI Summary HPI Summary: ONSET THIS MORNING OF URINARY FREQUENCY AND PRESSURE. NO FEVER, NAUSEA OR BACK PAIN. - History Of Current Complaint Chief Complaint: UCGU Stated Complaint: PERSONAL Time Seen by Provider: 04/21/18 18:12 Hx Obtained From: Patient Onset/Duration: Gradual Onset, Lasting Hours, Still Present Severity Initially: Moderate Severity Currently: Moderate Pain Intensity: 0 Pain Scale Used: 0-10 Numeric Character: Burning Aggravating Factor(s): Urination Associated Signs And Symptoms: Negative: Fever, Back Pain, Vaginal Bleeding/ Discharge, Nausea - Allergies/Home Medications Allergies/Adverse Reactions: Allergies Allergy/AdvReac Type Severity Reaction Status Date / Time No Known Allergies Allergy Verified 04/21/18 18:07 PMH/Surg Hx/FS Hx/Imm Hx Endocrine History: Diabetes Cardiovascular History: Hypertension Respiratory History: Asthma GI/ History: Kidney Stones - Surgical History Surgical History: Yes Surgery Procedure, Year, and Place: CHOLECYSTECTOMY - [address] [facility]. MULTIPLE URETERAL STENTS/LITHOTRIPSIES IN PAST 35 YRS - MOST IN [place], [place] [facility] [place] - Family History Known Family History: Positive: Hypertension, Diabetes - Social History Alcohol Use: None Substance Use Type: None Smoking Status (MU): Never Smoked Tobacco - Immunization History Most Recent Influenza Vaccination: this season Most Recent Pneumonia Vaccination: has not had Review of Systems All Other Systems Reviewed And Are Negative: Yes Constitutional: Positive: Negative Respiratory: Positive: Negative Cardiovascular: Positive: Negative Gastrointestinal: Positive: Negative Genitourinary: Positive: Dysuria, Frequency, Urgency Physical Exam Triage Information Reviewed: Yes Appearance: Well-Appearing, No Pain Distress, Well-Nourished Vital Signs: Initial Vital Signs Temp 97.3 F 04/21/18 18:03 Pulse 72 04/21/18 18:03 Resp 16 04/21/18 18:03 BP 159/92 04/21/18 18:03 Pulse Ox 98 04/21/18 18:03 Laboratory Tests 04/21/18 18:33 POC Urine Color Vicki POC Urine Clarity Cloudy POC Urine pH 5.5 POC Ur Specif Leola >= 1.030 POC Urine Protein 2+ A POC Ur Glucose (UA) Negative POC Urine Ketones Negative POC Urine Blood 3+ A POC Urine Nitrite Positive A POC Urine Bilirubin Negative POC Urine Urobilinogen 0.2 POC U Leukocyte Esteras 2+ A Vital Signs Reviewed: Yes Eyes: Positive: Conjunctiva Clear ENT: Positive: Hearing grossly normal Neck: Positive: Supple Respiratory: Positive: No respiratory distress, No accessory muscle use Cardiovascular: Positive: Pulses Normal Abdomen Description: Positive: Soft Musculoskeletal: Positive: No Edema Neurological: Positive: Alert Psychological: Positive: Age Appropriate Behavior Skin: Negative: Rashes Complaint Female Dx - Differential Dx/Diagnosis Provider Diagnosis: UTI (urinary tract infection) Discharge - Sign-Out/Discharge Documenting (check all that apply): Patient Departure All imaging exams completed and their final reports reviewed: No Studies - Discharge Plan Condition: Stable Disposition: HOME Prescriptions: Phenazopyridine TAB* [Pyridium TAB*] 200 mg PO TID #6 tab Sulfamethox/Trimethoprim DS* [Bactrim DS 800/160 TAB*] 1 tab PO BID #10 tab Patient Education Materials: Urinary Tract Infection in Women (ED) Referrals: Marina Hernandez MD [Primary Care Provider] - If Needed - Billing Disposition and Condition Condition: STABLE Disposition: Home
== END 2018-04-21 18:39 | disposition home or self-care (01) ==
LOC: UCEAST 17:51
DX: N39.0 Urinary tract infection, site not specified (principal); I10 Essential (primary) hypertension; E11.9 Type 2 diabetes mellitus without complications
CPT/HCPCS: 81003; 87077; 87086; 87186; 99212; G0463